=== PATIENT | male | born 1965 | race Caucasian/White ===

== ENCOUNTER → 2018-03-27 | Day surgery (SDC) | payer OTHER ==
[2018-03-24 09:02] VITALS: Ht 170.2 cm; Wt 72.7 kg
[~2018-03-27] VITALS: Ht 170.2 cm; Wt 72.7 kg
[~2018-03-27] MED LIST: ACET-1311 PO; ATROPINE SULFATE 0.1 MG/ML 5ML SYR IV PRN; DEXAMETHASONE SOD INJ 4 MG/ML VIAL ONE; EpHEDrine SULFATE INJ 50 MG/ML AMP IV PRN; FENTANYL CITRATE INJ 50 MCG/1 ML 2 ML VIAL IV PRN; FENTANYL CITRATE INJ 50 MCG/1 ML 2 ML VIAL ONE; KETOROLAC TROMETHAMINE 30 MG/ML VIAL ONE; LACTATED RINGER'S 1000ML 1,000 ML IV SCH; LIDOCAINE HCL 2% 2 ML VIAL (20MG/ML) ONE; MIDAZOLAM HCL 1 MG/ML 2ML VIAL ONE; OMEP40CA41 PO; ONDANSETRON INJ 2 MG/ML 2 ML VIAL IV PRN; ONDANSETRON INJ 2 MG/ML 2 ML VIAL ONE; OXYC-57 PO; PROPOFOL IV EMULSION 10 MG/ML 20 ML VIAL IV ONE; TAMS0.4C38 PO
--- NOTE | 2018-03-27 08:12 | History & Physical Bridge Note ---
H&P Re-Evaluation Bridge Note: I have examined the patient, reviewed the History & Physical and in the interval since the performance of the History & Physical I have noted the following changes of clinical significance: No changes noted
--- NOTE | 2018-03-27 09:19 | [facility] Operative Report ---
Operative Report Operative Date Mar 27, 2018. Pre-Operative Diagnosis left renal stone, microscopic hematuria Post-Operative Diagnosis same Procedure(s) Performed cystoscopy, left shock wave lithotripsy Surgeon andres Chief Development Officer Surgeon(s) none Estimated Blood Loss 0mL Findings radio-opaque left renla stone, normla cysto Fluids 600mL Specimens none Drains None Anesthesia Type General Complication(s) none Disposition yes Recovery Room / PACU Indications medium left renal stone and hematuria Description of Procedure patient had general lma anesthesia and was placed on the litho bed. The left flak was placed against the litho head and the stone positioned into the focal zone. We delivered 2500 shocks to the left renal stone gradually increasing power to 5. We observed a 2 minute pause after the first 200 shocks. Mid treatment we prepped the genitals with chlorhexidine and draped out the lower half of body. I performed a flexible cystoscopy and found the urethra prostate and bladder to be normal. The prostate is nor enlarged. UOs are in normal location. I apsirated most of the fluid out of the bladder with a syringe. He tolerated procedure well and transferred to recovery in stable condition. I accompanied him to recovery room. The stone was seen to widen lighten and move medially during treatment. plan: home today flomax for 2-4 weeks strain urine until stone specimen is collected. ibuprofen and narcotic meds for pain relief clinic visit and kub in 4 weeks I attest to the content of the Intraoperative Record and any orders documented therein. Any exceptions are noted below.
--- NOTE | 2018-03-27 09:23 | Discharge Instructions ---
Discharge Instructions Date of Service Mar 27, 2018. Admission Reason for Admission: Left Kidney Stone Discharge Discharge Diagnosis / Problem: left kidney stone Discharge Goals Goal(s): Decrease discomfort, Improve disease control Activity Recommendations Activity Limitations: resume your previous activity Lifting Limitations: none Exercise/Sports Limitations: none May Resume Sexual Activity: when tolerated Shower/Bathe: no limitations Driving or Machine Use: resume 1 day after discharge . Instructions / Follow-Up Instructions / Follow-Up urine may be bloody for several days strain urine to collect stone pieces and bring to office visit take flomax daily for 2-4 weeks to ease stone passage take ibuprofen 600-800mg every 8 hours with food for mild to moderate pain add narcotic every 6 hours for severe pain use stool softener if using narcotic clinic visit one month with x-ray to assess stone clearance Current Hospital Diet Patient's current hospital diet: Discharge Diet Recommended Diet: Regular Diet Fluid Restriction: 2000 ml (8 cups) Procedures Procedures Performed: cystoscopy, left shock wave lithotripsy Pending Studies Studies pending at discharge: no Medical Emergencies . Who to Call and When: Medical Emergencies: If at any time you feel your situation is an emergency, please call 911 immediately. . Non-Emergent Contact Non-Emergency issues call your: Urologist ([phone]) Call Non-Emergent contact if: temperature is above 100.5, your pain is not controlled . . "Provider Documentation" section prepared by Yolanda Mitchell. . [place] Drug Monitoring Program Search Results: patient reviewed within database, no issues identified
[2018-03-27 09:54] VITALS: TEMP 37.3
--- NOTE | 2018-03-27 10:02 | Anesthesia Progress Nt - [facility] ---
Anesthesia Post Op Note Date & Time Mar 27, 2018 at 10:02 Vital Signs Pain Intensity: 1 Vital Signs Past 12 Hours Date Time Temp Pulse Resp B/P (MAP) Pulse Ox O2 Delivery O2 Flow Rate FiO2 03/27/18 09:54 37.3 82 16 176/103 (127) 95 Room Air 03/27/18 09:47 84 17 96 03/27/18 09:47 84 17 03/27/18 09:46 161/99 03/27/18 09:45 37.3 97 Room Air 03/27/18 09:43 80 13 03/27/18 09:43 80 13 96 03/27/18 09:42 90 13 99 03/27/18 09:42 87 13 03/27/18 09:41 154/94 03/27/18 09:37 81 18 03/27/18 09:37 80 18 100 03/27/18 09:36 153/96 03/27/18 09:32 78 21 03/27/18 09:32 78 21 100 03/27/18 09:31 158/96 03/27/18 09:29 80 20 100 03/27/18 09:29 81 20 03/27/18 09:26 157/95 03/27/18 09:24 79 25 100 03/27/18 09:24 78 25 03/27/18 09:21 154/97 03/27/18 09:20 154/97 03/27/18 09:19 37.1 99 16 154/97 100 Mask 9 03/27/18 07:12 36.9 75 18 151/95 (113) 96 Room Air Notes Mental Status: alert / awake / arousable, participated in evaluation Pt Amnestic to Procedure: Yes Nausea / Vomiting: adequately controlled Pain: adequately controlled Airway Patency, RR, SpO2: stable & adequate BP & HR: stable & adequate Hydration State: stable & adequate Anesthetic Complications: no major complications apparent
[2018-03-27 10:15] VITALS: O2SAT 97
[2018-03-27 10:25] VITALS: BP 169/95; PULSE 75
== END | disposition home or self-care (01) ==
LOC: X.SURG 06:58
PROVIDERS: ATTEND Urology
DX: N20.0 Calculus of kidney (principal); R31.29 Other microscopic hematuria

== ENCOUNTER 2025-10-23 12:06 | Observation (INO) ==
[2025-10-23] MEDS: SODIUM CHLORIDE 0.9% 1,000 ML IV ONE (12:35)
[2025-10-23 12:43] LABS: Hematocrit (blood only) 50.5 % (42.0-52.0); Hemoglobin 16.7 g/dL (14.0-18.0); Immature Granulocytes # (auto) 0.07 K/uL (0.01-0.20); Immature Granulocytes % (auto) 0.4 %; Mean Corpuscular Hemoglobin 30.8 pg (25.0-34.0); Mean Corpuscular Volume 93.0 fL (80.0-100.0); Platelet Count 426 K/uL (130-400); RDW Standard Deviation 45.9 fL (36.4-46.3); Red Blood Count 5.43 M/uL (4.70-6.10); White Blood Count 18.58 K/ul (4.8-10.8)
[2025-10-23 13:00] LABS: Albumin Level 4.9 gm/dl (3.4-5.0); Anion Gap 15.0 (3-11); Bilirubin,Total 0.5 mg/dl (0.2-1.0); Calcium 10.1 mg/dl (8.6-10.3); Carbon Dioxide 20.0 mmol/L (21-32); Chloride 108.0 mmol/L (98-107); Potassium 3.9 mmol/L (3.5-5.1); Sodium 143.0 mmol/L (136-145)
[2025-10-23 13:06] LABS: Alanine Aminotransferase 25.0 U/L (7-52); Alkaline Phosphatase 85.0 U/L (34-104); Blood Urea Nitrogen 20.0 mg/dl (6-23); Creatinine Clr Calc Pharmacy 31.5 ml/min; Glucose 183.0 mg/dl (70-99(Fasting)); Lipase 18.0 U/L (11-82); Total Protein 9.7 gm/dl (6.0-8.3)
[2025-10-23 13:11] LABS: INR 1.1 (0.9-1.1); Partial Thromboplastin Time 29 Seconds (21-31); Prothrombin Time 11.3 Seconds (9.0-12.0)
[2025-10-23] MEDS: ONDANSETRON INJ 2 MG/ML 2 ML VIAL IV STA (13:24)
[2025-10-23] MEDS: PANTOprazole 40 MG in DEXTROSE 5% MINI-B 100 ML IV SCH (13:29)
[2025-10-23] MEDS: GLUCAGON 1 ML IV ONE (13:30)
[2025-10-23] MEDS: PANTOPRAZOLE BOLUS/DRIP IV STA (13:30)
--- NOTE | 2025-10-23 13:32 | XRay Report ---
Exam: XR abdomen 2 views with PA chest. Exam reason: Vomiting. Comparison: 11/29/2023 Technique: Upright and supine views of the abdomen were obtained in addition to a PA view of the chest. Findings: The lungs are well-expanded and clear. The cardiac and mediastinal contours are within normal limits. There is no pneumothorax. Multiple additional views of the abdomen demonstrate a nonobstructive bowel gas pattern. No unusual soft tissue calcifications are identified. There is no evidence of free air beneath the hemidiaphragms. No radiopaque foreign bodies are seen. Impression: 1. No acute cardiopulmonary abnormality. 2. Nonobstructive abdominal bowel gas pattern. Electronically signed by Clay Higgins 10-23-2025 13:31 PM
--- NOTE | 2025-10-23 13:56 | CT Scan Report ---
Exam: The abdomen pelvis without contrast. Exam reason: Vomiting. Comparison: 07/20/2024. Technique: Multiple transaxial images of the abdomen pelvis were obtained without contrast. Findings: The visualized portions of the lung bases are unremarkable. No focal abnormalities noted within the liver. No normal spleen is identified in the left upper quadrant. Multiple irregularly-shaped splenules are noted in the splenic fossa. Adrenals and pancreas are within normal limits. The gallbladder is unremarkable there is no evidence of obstructing stone or hydronephrosis. There are bilateral punctate nonobstructing renal calculi. The bowel loops are of normal caliber. The bladder is unremarkable. There is no free air, free fluid or inflammatory change. The appendix is normal in course and caliber no acute bony adenopathy is identified. There is scattered atherosclerotic calcifications noted within the aorta and its branches. Impression: 1. Unremarkable abdomen and pelvis. Electronically signed by Clay Higgins 10-23-2025 13:56 PM
--- NOTE | 2025-10-23 14:03 | Emergency Department Note ---
History of Present Illness General Chief complaint: GI Assessment Stated complaint: THROWING UP COFFEEGRINDS ELEVATED BS Time Seen by Provider: 10/23/25 12:15 History of Present Illness Provider complaint: Vomiting Onset (ago): day(s) 2 60-year-old male presents emergency department for vomiting. Patient is here with his . reports that the patient was eating meat yesterday and sometimes meat gets stuck in his throat after a stroke. She states he has been vomiting and cannot keep anything down. reports coffee-ground emesis. Home Medications Medication Instructions Recorded Confirmed Type amantadine HCl 100 mg capsule 100 mg feeding tube QAM 07/20/24 10/23/25 History amlodipine 10 mg tablet 10 mg feeding tube QAM 07/20/24 10/23/25 History buspirone 5 mg tablet 5 mg feeding tube BID 07/20/24 10/23/25 History diphenhydramine HCl 25 mg capsule 25 mg feeding tube QAM 07/20/24 10/23/25 History (Banophen) fluoxetine 40 mg capsule 0 mg feeding tube QAM 07/20/24 10/23/25 History folic acid 1 mg tablet 1 mg feeding tube QAM 07/20/24 10/23/25 History labetalol 200 mg tablet 0 mg feeding tube DIRECTED 07/20/24 10/23/25 History lisinopril 20 mg tablet 0 mg feeding tube BID 07/20/24 10/23/25 History meclizine 25 mg tablet 25 mg feeding tube TID PRN 07/20/24 10/23/25 History Dizziness multivitamin with folic acid 400 1 tab PO .DAILYATNOON 07/20/24 10/23/25 History mcg tablet (Daily-Stiven (with folic acid)) pantoprazole 40 mg tablet,delayed 40 mg PO QAM 07/20/24 10/23/25 History release rosuvastatin 10 mg tablet 10 mg PO QAM 07/20/24 10/23/25 History tamsulosin 0.4 mg capsule 0 mg PO QAM 07/20/24 10/23/25 History thiamine HCl (vitamin B1) 100 mg 100 mg feeding tube QAM 07/20/24 10/23/25 History tablet trazodone 50 mg tablet 50 mg PO HS 07/20/24 10/23/25 History metformin 500 mg tablet,extended 500 mg PO DAILY 10/23/25 10/23/25 History release 24 hr metoprolol succinate 25 mg 25 mg PO DAILY 10/23/25 10/23/25 History tablet,extended release 24 hr Allergies Allergy/AdvReac Type Severity Reaction Status Date / Time No Known Allergies Allergy Verified 03/05/23 23:17 Past Med/Surg History Problem List (Updated 10/23/25 @ 14:20 by Apollo Zambrano MD) Coffee ground emesis (Acute) WILMA (acute kidney injury) (Acute) Encounter for pre-operative examination Food impaction of esophagus (Acute) Medical History Alcoholic intoxication Mood disorder Food impaction of esophagus Kidney stones Social History Smoking Status: Never smoker Tobacco Type: Cigarettes Preferred Language: Citizen Of [place] Feels Safe at Home: Yes Physical Exam Vital Signs Vital Signs - 24 hr 10/23/25 12:11 10/23/25 12:37 10/23/25 12:37 Temperature 36.4 C L Temperature Source Temporal Artery Scan Pulse Rate 100 H 67 Pulse Rate [Apical] 67 Respiratory Rate 20 16 16 Respiratory Effort / Characteristics Non-Labored Spontaneous Respiratory Depth Normal Blood Pressure 108/73 Blood Pressure [Right Arm] 135/78 Blood Pressure Mean 84 Blood Pressure Mean [Right Arm] 97 Blood Pressure Position Sitting Pulse Oximetry 96 98 98 Oxygen Delivery Method Room Air Room Air Room Air Sepsis Recent Fever Within 48 Hours No Sepsis New/Unexplained Change in Mental Status N/A Sepsis Action Taken by Nursing No Action Required 10/23/25 12:40 Temperature Temperature Source Pulse Rate 87 Pulse Rate [Apical] Respiratory Rate Respiratory Effort / Characteristics Respiratory Depth Blood Pressure Blood Pressure [Right Arm] Blood Pressure Mean Blood Pressure Mean [Right Arm] Blood Pressure Position Pulse Oximetry Oxygen Delivery Method Sepsis Recent Fever Within 48 Hours Sepsis New/Unexplained Change in Mental Status Sepsis Action Taken by Nursing Physical Exam HENT: Exam performed. - Head: Normocephalic and atraumatic. CV: Normal rate, regular rhythm, normal heart sounds and intact distal pulses. There is no peripheral edema. Palpable radial pulses bue. PULM/CHEST: Effort normal and breath sounds normal. No respiratory distress. No stridor. no wheezes. no rales. ABD: The abdomen is soft. There is no tenderness. Course Course 1215: The patient was evaluated in room B12. A complete history and physical exam was performed Cardiac monitoring: An order was placed for continuous cardiac monitoring. The monitor shows a rate of 90 with sinus rhythm interpreted by me 1315: Vital signs stable. Patient's creatinine is doubled his baseline up to 2.6. Will obtain CT of the abdomen pelvis without contrast. 1407: Vital signs stable. Labs show leukocytosis of 18.58. Hemoglobin 16.7 platelet count 426 coagulation studies are unremarkable. Creatinine up to 2.6. Liver function test within normal limits. Imaging shows no acute pathology. Patient tolerating his own oral secretions no respiratory distress. Patient on Protonix bolus/drip and IV fluids. Discussed the case with Dr. BRIAN on-call GI. He agrees patient should be admitted to the medicine team and he states his team will evaluate the patient in the morning. Administered Medications Pantoprazole Sodium 40 mg/ (Dextrose) 100 mls @ 20 mls/hr IV Q5H CINDY Stop: 11/22/25 12:59 Last Admin: 10/23/25 13:29 Dose: 8 mg/hr, 20 mls/hr Documented By: DELTA Discontinued Medications Sodium Chloride (Nss) 1,000 mls @ 999 mls/hr IV .Q1H1M ONE Stop: 10/23/25 13:16 Last Infusion: 10/23/25 13:31 Dose: Infused Documented By: Admin: 10/23/25 12:35 Dose: 999 mls/hr Documented By: DELTA Pantoprazole Sodium 80 mg/ (Dextrose) 120 mls @ 480 mls/hr IV NOW ONE Stop: 10/23/25 12:57 Last Infusion: 10/23/25 13:58 Dose: Infused Documented By: Admin: 10/23/25 13:29 Dose: 480 mls/hr Documented By: DELTA Glucagon (Glucagen) 1 mls @ 1 mls/min IV ONE ONE Stop: 10/23/25 12:44 Last Admin: 10/23/25 13:30 Dose: Not Given Documented By: DELTA Ondansetron HCl (Ondansetron Inj 2 Mg/Ml 2 Ml Vial) 4 mg IV NOW STA Stop: 10/23/25 12:44 Last Admin: 10/23/25 13:24 Dose: 4 mg Documented By: DELTA Pantoprazole Sodium (Pantoprazole Bolus/Drip) 1 each IV NOW STA Stop: 10/23/25 12:44 Last Admin: 10/23/25 13:30 Dose: Not Given Documented By: DELTA Medical Decision Making Laboratory Data Attestation: I reviewed the patient's lab results. 10/23/25 12:33 10/23/25 12:33 Lab Results 10/23/25 Range/Units 12:33 WBC 18.58 H (4.8-10.8) K/ul RBC 5.43 (4.70-6.10) M/uL Hgb 16.7 (14.0-18.0) g/dL Hct 50.5 (42.0-52.0) % MCV 93.0 (80.0-100.0) fL MCH 30.8 (25.0-34.0) pg MCHC 33.1 (32.0-36.0) g/dL RDW Std Deviation 45.9 (36.4-46.3) fL RDW Coeff of Sylwia 13.4 (11.5-14.5) % Plt Count 426 H (130-400) K/uL MPV 10.4 (9.4-12.4) fL Immature Gran % (Auto) 0.4 % Neut % (Auto) 82.3 % Lymph % (Auto) 10.4 % Forrest % (Auto) 6.2 % Eos % (Auto) 0.1 % Baso % (Auto) 0.6 % Neut # (Auto) 15.29 H (1.40-6.50) K/uL Lymph # (Auto) 1.94 (1.20-3.40) K/uL Forrest # (Auto) 1.15 H (0.11-0.59) K/uL Eos # (Auto) 0.01 (0.00-0.50) K/uL Baso # (Auto) 0.12 (0.00-0.20) K/uL Immature Gran # (Auto) 0.07 (0.01-0.20) K/uL PT 11.3 (9.0-12.0) Seconds INR 1.1 (0.9-1.1) APTT 29 (21-31) Seconds PTT Ratio 1.1 Sodium 143 (136-145) mmol/L Potassium 3.9 (3.5-5.1) mmol/L Chloride 108 H (98-107) mmol/L Carbon Dioxide 20 L (21-32) mmol/L Anion Gap 15 H (3-11) BUN 20 (6-23) mg/dl Creatinine 2.60 H (0.6-1.4) mg/dl Est Cr Clr Drug Dosing 31.5 ml/min eGFR 27.72 BUN/Creatinine Ratio 7.7 L (10-20) Glucose 183 H (70-99(Fasting)) mg/dl Calcium 10.1 (8.6-10.3) mg/dl Total Bilirubin 0.5 (0.2-1.0) mg/dl Direct Bilirubin 0.1 (0-0.2) mg/dl AST 26 (13-39) U/L ALT 25 (7-52) U/L Alkaline Phosphatase 85 (34-104) U/L Total Protein 9.7 H (6.0-8.3) gm/dl Albumin 4.9 (3.4-5.0) gm/dl Lipase 18 (11-82) U/L Imaging Data Attestation: I personally reviewed and interpreted this imaging study as follows: My Impression: Acute abdominal series: Chest x-ray negative. Airway clear. No pneumothorax. No consolidation. No cardiomegaly or cephalization.. No free air under the diaphragm. No fractures of the skeletal structures. No air-fluid levels. Nonspecific bowel gas pattern. Radiologist's Impression: Chest/Abdomen X-ray 10/23/25 12:16 Exam: XR abdomen 2 views with PA chest. Exam reason: Vomiting. Comparison: 11/29/2023 Technique: Upright and supine views of the abdomen were obtained in addition to a PA view of the chest. Findings: The lungs are well-expanded and clear. The cardiac and mediastinal contours are within normal limits. There is no pneumothorax. Multiple additional views of the abdomen demonstrate a nonobstructive bowel gas pattern. No unusual soft tissue calcifications are identified. There is no evidence of free air beneath the hemidiaphragms. No radiopaque foreign bodies are seen. Impression: 1. No acute cardiopulmonary abnormality. 2. Nonobstructive abdominal bowel gas pattern. Electronically signed by Clay Higgins 10-23-2025 13:31 PM Abdomen/Pelvis CT 10/23/25 13:16 Exam: The abdomen pelvis without contrast. Exam reason: Vomiting. Comparison: 07/20/2024. Technique: Multiple transaxial images of the abdomen pelvis were obtained without contrast. Findings: The visualized portions of the lung bases are unremarkable. No focal abnormalities noted within the liver. No normal spleen is identified in the left upper quadrant. Multiple irregularly-shaped splenules are noted in the splenic fossa. Adrenals and pancreas are within normal limits. The gallbladder is unremarkable there is no evidence of obstructing stone or hydronephrosis. There are bilateral punctate nonobstructing renal calculi. The bowel loops are of normal caliber. The bladder is unremarkable. There is no free air, free fluid or inflammatory change. The appendix is normal in course and caliber no acute bony adenopathy is identified. There is scattered atherosclerotic calcifications noted within the aorta and its branches. Impression: 1. Unremarkable abdomen and pelvis. Electronically signed by lCay Higgins 10-23-2025 13:56 PM [facility] Narrative 1215: The patient was evaluated in room B12. A complete history and physical exam was performed Cardiac monitoring: An order was placed for continuous cardiac monitoring. The monitor shows a rate of 90 with sinus rhythm interpreted by me 1315: Vital signs stable. Patient's creatinine is doubled his baseline up to 2.6. Will obtain CT of the abdomen pelvis without contrast. 1407: Vital signs stable. Labs show leukocytosis of 18.58. Hemoglobin 16.7 platelet count 426 coagulation studies are unremarkable. Creatinine up to 2.6. Liver function test within normal limits. Imaging shows no acute pathology. Patient tolerating his own oral secretions no respiratory distress. Patient on Protonix bolus/drip and IV fluids. Discussed the case with Dr. BRIAN on-call GI. He agrees patient should be admitted to the medicine team and he states his team will evaluate the patient in the morning. Impression & Plan WILMA (acute kidney injury), Coffee ground emesis Discharge Plan Visit Data Chief Complaint: GI Assessment Stated Complaint: THROWING UP COFFEEGRINDS ELEVATED BS ED Provider: Apollo Zambrano Discharge Problem: WILMA (acute kidney injury), Coffee ground emesis Patient Disposition: Admitted As Inpatient Condition: Fair Forms Stand Alone Forms: [email or web address] Prescriptions Prescriptions: No Action fluoxetine 40 mg capsule 0 mg feeding tube QAM Patient Comments: 10/23-- last filled 01/30 30 day supply #30 buspirone 5 mg tablet 5 mg feeding tube BID labetalol 200 mg tablet 0 mg feeding tube DIRECTED Patient Comments: 10/23- last filled 12/03 30 day supply #120 trazodone 50 mg tablet 50 mg PO HS lisinopril 20 mg tablet 0 mg feeding tube BID Patient Comments: 10/23-last filled 08/05 30 day supply #60 thiamine HCl (vitamin B1) 100 mg tablet 100 mg feeding tube QAM Patient Comments: 10/23- otc unable to verify amantadine HCl 100 mg capsule 100 mg feeding tube QAM tamsulosin 0.4 mg capsule 0 mg PO QAM Patient Comments: 10/23-last filled 05/03 30 day supply #30 meclizine 25 mg tablet 25 mg feeding tube TID PRN (Reason: Dizziness) Patient Comments: 10/23- otc unable to verify amlodipine 10 mg tablet 10 mg feeding tube QAM pantoprazole 40 mg tablet,delayed release (DR/EC) 40 mg PO QAM diphenhydramine HCl [Banophen] 25 mg capsule 25 mg feeding tube QAM folic acid 1 mg tablet 1 mg feeding tube QAM Patient Comments: 10/23- otc unable to verify rosuvastatin 10 mg tablet 10 mg PO QAM multivitamin with folic acid [Daily-Stiven (with folic acid)] 400 mcg tablet 1 tab PO .DAILYATNOON Patient Comments: 10/23--OTC/last filled 04/18 90 day supply #90 metoprolol succinate 25 mg tablet extended release 24 hr 25 mg PO DAILY metformin 500 mg tablet extended release 24 hr 500 mg PO DAILY Referrals Referrals: Sherman Barry MD [Primary Care Provider] -
--- NOTE | 2025-10-23 15:20 | History & Physical Report ---
Date of Service October 23, 2025 Assessment & Plan (1) Coffee ground emesis: Plan: Complains to have occasional swallowing difficulty since stroke in the past Has had food impaction at lunch yesterday Repeated vomiting since then without any pain and noted to have coffee-ground emesis No prior history of GI bleed and does not take any NSAIDs Hemoglobin remains stable He has been started with intravenous Protonix drip and that will be continued Will get H&H's every 6 hourly for 24 hours GI consult and possible EGD tomorrow (2) Dysphagia: Plan: Complains of occasional dysphagia since his stroke about 2 years ago (3) Food impaction of esophagus: (4) WILMA (acute kidney injury): Plan: Noted to have increasing creatinine of 2.60 Normal noted to be on 07/20/2024 at 1.30 Likely secondary to dehydration and not been eating and drinking since noon yesterday Will give cautious amount of intravenous fluid and monitor clear (5) HTN (hypertension): Plan: Blood pressure remains on the upper side at 154/92 Will continue his usual medications (6) Hyperlipidemia: Plan: Continue statin (7) History of intracranial hemorrhage: Plan: Has minimal left-sided hemiparesis (8) Major neurocognitive disorder: Plan: Has been evaluated by neuropsychiatrist Has major neurocognitive disorder but communicating normally DVT prophylaxis SCDs CODE STATUS Full History of Present Illness Chief Complaint: Choking on meat at lunch yesterday following vomiting of coffee-ground material Primary Care Provider: Sherman Barry MD Is a 60-year-old male with significant past medical history of hemorrhagic stroke with left hemiplegia about 2 years ago, hypertension, type 2 diabetes, major neurocognitive disorder following the stroke and prior history of alcohol abuse apparently has been complaining of occasional problem with swallowing solid food following the stroke. He was having turkey lunch yesterday and felt the food stuck in his esophagus and started to have vomiting. He has had vomited about 12 times since the incidence and lately having coffee-ground emesis as well. He was brought into the emergency room for further evaluation. He denies any pain in the central chest or in the epigastrium, does not have any abdominal pain nausea and or vomiting since I saw him, and denies any problem with urinary or bowel. He has not been taking any NSAIDs and he has not had any coffee-ground vomiting before or did not have any black tarry stool past. He was started with intravenous Protonix and GI service was informed by the ER physician who will probably do EGD tomorrow. Allergies Allergy/AdvReac Type Severity Reaction Status Date / Time No Known Allergies Allergy Verified 03/05/23 23:17 Home Medications Medication Instructions Recorded Confirmed Type amantadine HCl 100 mg capsule 100 mg feeding tube QAM 07/20/24 10/23/25 History amlodipine 10 mg tablet 10 mg feeding tube QAM 07/20/24 10/23/25 History buspirone 5 mg tablet 5 mg feeding tube BID 07/20/24 10/23/25 History diphenhydramine HCl 25 mg capsule 25 mg feeding tube QAM 07/20/24 10/23/25 History (Banophen) fluoxetine 40 mg capsule 0 mg feeding tube QAM 07/20/24 10/23/25 History folic acid 1 mg tablet 1 mg feeding tube QAM 07/20/24 10/23/25 History labetalol 200 mg tablet 0 mg feeding tube DIRECTED 07/20/24 10/23/25 History lisinopril 20 mg tablet 0 mg feeding tube BID 07/20/24 10/23/25 History meclizine 25 mg tablet 25 mg feeding tube TID PRN 07/20/24 10/23/25 History Dizziness multivitamin with folic acid 400 1 tab PO .DAILYATNOON 07/20/24 10/23/25 History mcg tablet (Daily-Stiven (with folic acid)) pantoprazole 40 mg tablet,delayed 40 mg PO QAM 07/20/24 10/23/25 History release rosuvastatin 10 mg tablet 10 mg PO QAM 07/20/24 10/23/25 History tamsulosin 0.4 mg capsule 0 mg PO QAM 07/20/24 10/23/25 History thiamine HCl (vitamin B1) 100 mg 100 mg feeding tube QAM 07/20/24 10/23/25 History tablet trazodone 50 mg tablet 50 mg PO HS 07/20/24 10/23/25 History metformin 500 mg tablet,extended 500 mg PO DAILY 10/23/25 10/23/25 History release 24 hr metoprolol succinate 25 mg 25 mg PO DAILY 10/23/25 10/23/25 History tablet,extended release 24 hr Past Med/Surg History Problem List (Updated 10/23/25 @ 15:15 by Priscilla Dubon MD) Major neurocognitive disorder History of intracranial hemorrhage Hyperlipidemia HTN (hypertension) Dysphagia Coffee ground emesis (Acute) WILMA (acute kidney injury) (Acute) Encounter for pre-operative examination Food impaction of esophagus (Acute) Medical History Alcoholic intoxication Mood disorder Food impaction of esophagus Kidney stones Social History Smoking Status: Never smoker Tobacco Type: Cigarettes Preferred Language: Iraqi Feels Safe at Home: Yes Review of Systems Review of Systems: All systems reviewed and are unremarkable except as noted below Physical Exam Physical Exam: Lying in bed without any acute distress Constitutional: well developed, well nourished, + ill appearing and average body habitus Eyes: PERRL, conjunctivae normal, anicteric sclerae ENMT: external ear and nose normal, oropharynx normal Neck: trachea midline, no thyromegaly Respiratory: no respiratory distress Auscultation: lungs clear to auscultation bilaterally Cardiovascular: Rate/Rhythm: regular rate and regular rhythm; not tachycardic Heart Sounds: normal S1 and normal S2; no murmur Extremities: no edema Gastrointestinal (Abdomen): Inspection/Auscultation: normal bowel sounds; abdomen not distended Percussion/Palpation: abdomen soft; abdomen nontender Musculoskeletal: No acute arthritis involving any of the joint Neurologic: normal touch/pain/proprioception, moves all extremities and + focal motor deficit (Very minimal loss of power in left-sided extremities) Psychiatric: Has significant neurocognitive disorder as per the note Lymphatic: no cervical or axillary lymphadenopathy Results & Data Results & Data Vital Signs (Past 12 Hours) Vital Signs Temp Pulse Pulse Resp BP BP Pulse Ox 10/23/25 14:07 89 16 154/92 H 95 10/23/25 12:40 87 10/23/25 12:37 67 16 98 10/23/25 12:37 67 16 135/78 98 10/23/25 12:11 36.4 C L 100 H 20 108/73 96 O2 Del Method 10/23/25 14:07 Room Air 10/23/25 12:40 10/23/25 12:37 Room Air 10/23/25 12:37 Room Air 10/23/25 12:11 Room Air Laboratory Results Short CBC 10/23/25 Range/Units 12:33 WBC 18.58 H (4.8-10.8) K/ul Hgb 16.7 (14.0-18.0) g/dL Hct 50.5 (42.0-52.0) % Plt Count 426 H (130-400) K/uL BMP 10/23/25 12:33 Sodium 143 Potassium 3.9 Chloride 108 H Carbon Dioxide 20 L BUN 20 Creatinine 2.60 H Glucose 183 H Calcium 10.1 Liver Function 10/23/25 Range/Units 12:33 Total Bilirubin 0.5 (0.2-1.0) mg/dl Direct Bilirubin 0.1 (0-0.2) mg/dl AST 26 (13-39) U/L ALT 25 (7-52) U/L Alkaline Phosphatase 85 (34-104) U/L Albumin 4.9 (3.4-5.0) gm/dl Medications Administered Current Inpatient Medications Pantoprazole Sodium 40 mg/ (Dextrose) 100 mls @ 20 mls/hr IV Q5H CINDY Stop: 11/22/25 12:59 Last Admin: 10/23/25 13:29 Dose: 8 mg/hr, 20 mls/hr Code Status & VTE Plan VTE Prophylaxis Plan VTE Prophylaxis will be ordered: Yes (3) Food impaction of esophagus Encounter type: initial encounter Qualified Code(s): T18.128A - Food in esophagus causing other injury, initial encounter
[2025-10-23] MEDS: LACTATED RINGER'S 1,000 ML IV SCH (15:39)
[2025-10-23] MEDS ORDERED: MECLIZINE HCL 25 MG TAB PO PRN (17:23)
[2025-10-23] MEDS: METOPROLOL SUCC 25MG EXT REL TAB PO SCH (17:56)
[2025-10-23 19:50] LABS: Hematocrit (blood only) 44.1 % (42.0-52.0); Hemoglobin 14.9 g/dL (14.0-18.0)
[2025-10-23] MEDS ORDERED: GLUCOSE 10 TAB/TUBE PO PRN (20:11)
[2025-10-23] MEDS ORDERED: GLUCOSE 40% GEL 15 GM TUBE PO PRN (20:11)
[2025-10-23] MEDS ORDERED: GLUCAGON FOR INJ 1 MG VIAL SQ PRN (20:11)
[2025-10-23] MEDS ORDERED: DEXTROSE 50% 50 ML SYRINGE IV PRN (20:11)
[2025-10-23] MEDS ORDERED: CARBOHYDRATES FOR HYPOGLYCEMIA PO PRN (20:11)
[2025-10-23] MEDS: busPIRone 5 MG TAB PO SCH (20:44)
[2025-10-23] MEDS: INSULIN ASPART PER UNIT CHARGE SC SCH (20:47)
[2025-10-24 00:48] LABS: Hematocrit (blood only) 40.9 % (42.0-52.0); Hemoglobin 13.8 g/dL (14.0-18.0)
[2025-10-24] MEDS: AMANTADINE HCL 100 MG CAPSULE PO SCH (08:09)
[2025-10-24] MEDS: ROSUVASTATIN CALCIUM 10 MG TAB PO SCH (08:09)
[2025-10-24] MEDS: diphenhydrAMINE Capsule 25 MG CAP PO SCH (08:10)
[2025-10-24 08:21] LABS: Hematocrit (blood only) 39.9 % (42.0-52.0); Hemoglobin 13.4 g/dL (14.0-18.0); Immature Granulocytes # (auto) 0.05 K/uL (0.01-0.20); Immature Granulocytes % (auto) 0.4 %; Mean Corpuscular Hemoglobin 31.5 pg (25.0-34.0); Mean Corpuscular Volume 93.9 fL (80.0-100.0); Platelet Count 313 K/uL (130-400); RDW Standard Deviation 46.3 fL (36.4-46.3); Red Blood Count 4.25 M/uL (4.70-6.10); White Blood Count 12.92 K/ul (4.8-10.8)
[2025-10-24 08:40] LABS: Anion Gap 7.0 (3-11); Blood Urea Nitrogen 13.0 mg/dl (6-23); Calcium 8.7 mg/dl (8.6-10.3); Carbon Dioxide 25.0 mmol/L (21-32); Chloride 112.0 mmol/L (98-107); Creatinine Clr Calc Pharmacy 71.2 ml/min; Glucose 123.0 mg/dl (70-99(Fasting)); Magnesium 1.9 mg/dl (1.7-2.4); Potassium 3.7 mmol/L (3.5-5.1); Sodium 144.0 mmol/L (136-145)
[2025-10-24] MEDS ORDERED: PANTOprazole 40 MG in DEXTROSE 5% MINI-B 100 ML IV SCH (09:00)
[2025-10-24 09:21] LABS: Hemoglobin A1C 7.4 % (4.5-5.6)
[2025-10-24] MEDS: PANTOprazole 40 MG in SYRINGE BID IV SCH (10:09)
[2025-10-24] MEDS: MULTIVITAMIN TAB PO SCH (12:07)
--- NOTE | 2025-10-24 12:16 | Gastrointestinal Consultation ---
<Statement entered by Frank Murillo MD - 10/24/25 15:07> ATTENDING: The patient was seen and examined. Hospital labs, data, records and imaging reviewed at length. The case was discussed and reviewed with the GI advanced practitioner and I agree with her assessment and plan as outlined above. We will perform upper endoscopy to evaluate for any esophagitis or stricture. Further recommendations to follow thereafter Thank you for the courtesy of this consultation. Date of Consultation October 24, 2025 Assessment & Plan (1) Coffee ground emesis: Patient notes Friday's food no longer feels stuck after vomiting and he felt it pass, but after vomiting many times he developed coffee ground emesis. -Continue IV Protonix -Keep NPO for EGD today -Continue to monitor H/H History of Present Illness Reason for Consultation: coffee ground emesis Attending Physician: Ede Mchugh MD History of Present Illness Patient is a 60 yo male with PMH of HTN, DM2, major neurocognitive disorder and L sided hemiplegia following stroke, and history of alcohol abuse. Family reports to me that he has a history of not chewing his food thoroughly enough leading to repeated food bolus. They tell me he has required EGDs previously for this issue. They noted that he had a turkey sandwich on Monday 10/22 and he felt the food was stuck. He started vomiting at that point. He had 12 episodes of emesis prior to developing an episode of coffee-ground emesis. He notes that he feels that the food passed. No melena. No further vomiting at this point. No NSAID use. He is currently NPO. No pertinent family history. H/H 13.4/39.9. CT abd/pelvis unremarkable. Patient is currently on IV PPI therapy. Allergies Allergy/AdvReac Type Severity Reaction Status Date / Time No Known Allergies Allergy Verified 03/05/23 23:17 Home Medications Medication Instructions Recorded Confirmed Type amantadine HCl 100 mg capsule 100 mg feeding tube QAM 07/20/24 10/23/25 History amlodipine 10 mg tablet 10 mg feeding tube QAM 07/20/24 10/23/25 History buspirone 5 mg tablet 5 mg feeding tube BID 07/20/24 10/23/25 History diphenhydramine HCl 25 mg capsule 25 mg feeding tube QAM 07/20/24 10/23/25 History (Banophen) fluoxetine 40 mg capsule 0 mg feeding tube QAM 07/20/24 10/23/25 History folic acid 1 mg tablet 1 mg feeding tube QAM 07/20/24 10/23/25 History labetalol 200 mg tablet 0 mg feeding tube DIRECTED 07/20/24 10/23/25 History lisinopril 20 mg tablet 0 mg feeding tube BID 07/20/24 10/23/25 History meclizine 25 mg tablet 25 mg feeding tube TID PRN 07/20/24 10/23/25 History Dizziness multivitamin with folic acid 400 1 tab PO .DAILYATNOON 07/20/24 10/23/25 History mcg tablet (Daily-Stiven (with folic acid)) pantoprazole 40 mg tablet,delayed 40 mg PO QAM 07/20/24 10/23/25 History release rosuvastatin 10 mg tablet 10 mg PO QAM 07/20/24 10/23/25 History tamsulosin 0.4 mg capsule 0 mg PO QAM 07/20/24 10/23/25 History thiamine HCl (vitamin B1) 100 mg 100 mg feeding tube QAM 07/20/24 10/23/25 History tablet trazodone 50 mg tablet 50 mg PO HS 07/20/24 10/23/25 History metformin 500 mg tablet,extended 500 mg PO DAILY 10/23/25 10/23/25 History release 24 hr metoprolol succinate 25 mg 25 mg PO DAILY 10/23/25 10/23/25 History tablet,extended release 24 hr Patient History Medical History Alcoholic intoxication Mood disorder Kidney stones Social History Smoking Status: Former smoker Tobacco Type: Cigarettes Second Hand Exposure: No; Do You Dip or Chew Tobacco: No; Tobacco Cessation Education Requested by Patient: No Hx Alcohol Use: Yes Alcohol type: beer Hx Substance Use: No Preferred Language: Japanese Communication Ability: Effective Cardiothoracic Icu Rn Required: No Beliefs That Will Affect Care: None Current Living Situation: Spouse Other Information That Helps Us Care for You: No Feels Safe at Home: Yes Safety Concerns: Feels Safe At This Time Assistive Devices: Denture - Upper and Glasses Review of Systems Constitutional: no fever and no chills Gastrointestinal: + coffee ground emesis; no abdominal alba n, no blood in stools and no melena Physical Exam Constitutional: well developed Respiratory: normal respiratory effort Gastrointestinal (Abdomen): normal bowel sounds, soft, nontender, no hepatosplenomegaly Results & Data Vital Signs (Past 12 Hours) Vital Signs Temp Pulse Pulse Resp BP BP Pulse Ox 10/24/25 09:02 36.7 C 66 17 129/75 94 10/24/25 08:20 10/24/25 07:19 60 10/24/25 02:48 36.9 C 67 16 103/63 93 O2 Del Method 10/24/25 09:02 Room Air 10/24/25 08:20 Room Air 10/24/25 07:19 10/24/25 02:48 Room Air PG Care Time/CCT Total # of Minutes Spent Total Time Spent with Patient: Total time spent is greater than 50% in coordination of care (as documented) at patient's floor/unit and/or counseling patient: Coding Level of Care Code 74118 IN/OBS CONSULT LVL 4,60M Diagnoses Coffee ground emesis K92.0
--- NOTE | 2025-10-24 14:18 | Anesthesiology Consultation ---
Date of Service October 24, 2025 Assessment & Plan (1) Dysphagia: (2) Coffee ground emesis: (3) WILMA (acute kidney injury): Chart Review Chart Review: Acceptable Risk for Surgery Consults Requested none ASA ASA3 Proposed Anesthesia Anesthesia Type: MAC Risk / Benefits Reviewed With: PT / POA / Parent / Guardian, Accepts Plan and Informed Consent Obtained History Surgery Operation Date: 10/24/25 17:00 Proposed Procedures p Esophagogastroduodenoscopy Dr. Murillo - Frank Murillo MD Height/Weight Height: 5 ft 6 in Weight: 82.554 kg Allergies Allergy/AdvReac Type Severity Reaction Status Date / Time No Known Allergies Allergy Verified 03/05/23 23:17 Medications Home Medications Medication Instructions Recorded Confirmed Last Taken amantadine HCl 100 mg capsule 100 mg feeding tube QAM 07/20/24 10/23/25 07/20/24 amlodipine 10 mg tablet 10 mg feeding tube QAM 07/20/24 10/23/25 07/20/24 buspirone 5 mg tablet 5 mg feeding tube BID 07/20/24 10/23/25 07/20/24 diphenhydramine HCl 25 mg capsule 25 mg feeding tube QAM 07/20/24 10/23/25 07/20/24 (Banophen) fluoxetine 40 mg capsule 0 mg feeding tube QAM 07/20/24 10/23/25 07/20/24 folic acid 1 mg tablet 1 mg feeding tube QAM 07/20/24 10/23/25 07/20/24 labetalol 200 mg tablet 0 mg feeding tube DIRECTED 07/20/24 10/23/25 07/20/24 lisinopril 20 mg tablet 0 mg feeding tube BID 07/20/24 10/23/25 07/20/24 meclizine 25 mg tablet 25 mg feeding tube TID PRN 07/20/24 10/23/25 Unknown Dizziness multivitamin with folic acid 400 1 tab PO .DAILYATNOON 07/20/24 10/23/25 07/20/24 mcg tablet (Daily-Stiven (with folic acid)) pantoprazole 40 mg tablet,delayed 40 mg PO QAM 07/20/24 10/23/25 07/20/24 release rosuvastatin 10 mg tablet 10 mg PO QAM 07/20/24 10/23/25 07/20/24 tamsulosin 0.4 mg capsule 0 mg PO QAM 07/20/24 10/23/25 07/20/24 thiamine HCl (vitamin B1) 100 mg 100 mg feeding tube QAM 07/20/24 10/23/25 07/20/24 tablet trazodone 50 mg tablet 50 mg PO HS 07/20/24 10/23/25 Unknown metformin 500 mg tablet,extended 500 mg PO DAILY 10/23/25 10/23/25 Unknown release 24 hr metoprolol succinate 25 mg 25 mg PO DAILY 10/23/25 10/23/25 Unknown tablet,extended release 24 hr Active Medications Generic Name Dose Route Start Last Admin Trade Name Freq PRN Reason Stop Dose Admin Amantadine HCl 100 mg 10/24/25 09:00 10/24/25 08:09 Amantadine Hcl 100 Mg Capsule PO 11/23/25 08:59 100 mg QAM CINDY Administration Amlodipine Besylate 10 mg 10/23/25 17:23 10/24/25 08:08 Amlodipine Besylate 5 Mg Tab PO 11/22/25 17:22 10 mg QAM CINDY Administration Buspirone HCl 5 mg 10/23/25 21:00 10/24/25 08:10 Buspirone 5 Mg Tab PO 11/22/25 20:59 5 mg BID CINDY Administration Diphenhydramine HCl 25 mg 10/24/25 09:00 10/24/25 08:10 Diphenhydramine Capsule 25 Mg Cap PO 11/23/25 08:59 25 mg QAM CINDY Administration Fluoxetine HCl 40 mg 10/24/25 09:00 10/24/25 08:09 Fluoxetine Hcl 20 Mg Cap PO 11/23/25 08:59 40 mg QAM CINDY Administration Lactated Ringer's 1,000 mls @ 125 mls/hr 10/23/25 15:30 10/24/25 08:10 Lr IV 10/24/25 15:29 125 mls/hr .Q8H CINDY Administration Pantoprazole Sodium 40 mg in 10 mls @ 5 mls/min 10/24/25 09:00 10/24/25 10:09 Protonix IV 11/23/25 08:59 5 mls/min BID@0900,2100 CINDY Administration Insulin Aspart 0 units 10/23/25 20:15 10/24/25 13:39 Insulin Aspart Per Unit Charge SC 11/22/25 20:14 Not Given Q6H CINDY Lisinopril 20 mg 10/23/25 21:00 10/24/25 08:09 Lisinopril 20 Mg Tab PO 11/22/25 20:59 20 mg BID CINDY Administration Metoprolol Succinate 25 mg 10/23/25 17:23 10/24/25 08:08 Metoprolol Succ 25mg Ext Rel Tab PO 11/22/25 17:22 25 mg DAILY CINDY Administration Multivitamins 1 tab 10/24/25 12:00 10/24/25 12:07 Multivitamin Tab PO 11/23/25 11:59 1 tab DAILY@1200 CINDY Administration Rosuvastatin Calcium 10 mg 10/24/25 09:00 10/24/25 08:09 Rosuvastatin Calcium 10 Mg Tab PO 11/23/25 08:59 10 mg QAM CINDY Administration Trazodone HCl 50 mg 10/23/25 21:00 10/23/25 20:44 Trazodone Hcl 50 Mg Tab PO 11/22/25 20:59 50 mg HS CINDY Administration NPO Date Last Intake of Fluids: 10/23/25 Time Last Intake of Fluids: 23:59 Date Last Intake of Solids: 10/23/25 Time Last Intake of Solids: 12:00 Past Medical History Medical History (Updated 10/24/25 @ 14:19 by Yolanda Edwards DO) History of CVA with residual deficit Left hemiparesis Hyperlipidemia Major neurocognitive disorder History of intracranial hemorrhage HTN (hypertension) Alcoholic intoxication Mood disorder Kidney stones Exercise / Class Metabolic Activity III < 4 Walking/Shop/Light housework Past Surgical History Surgical History (Updated 10/24/25 @ 14:22 by Yolanda Edwards DO) H/O wisdom tooth extraction Hx of splenectomy Hx of esophagogastroduodenoscopy Past Anesthesia History No Hx of Anesthesia Complications and No Family Hx of Anesthesia Complications History of PONV No Hx of PONV and No Hx of Motion Sickness Social History Smoking Status: Former smoker tobacco type: cigarettes Do You Dip or Chew Tobacco: No Hx Alcohol Use: Yes Alcohol type: beer alcohol intake frequency: 0-2 drinks per day Hx Substance Use: No substance use type: does not use Physical Exam Vital Signs Last Vital Signs Temp 36.9 C 10/24/25 12:45 Pulse 62 10/24/25 12:45 Resp 17 10/24/25 12:45 BP 118/77 10/24/25 12:45 Pulse Ox 92 10/24/25 12:45 O2 Del Method Room Air 10/24/25 12:45 ENMT Mouth: + edentulous; no TMJ abnormality Thyromental Distance: > or= 3.5 Finger Breadths Mallampati Class: II Neck normal visual inspection, trachea midline and + facial hair; neck extension not limited Respiratory normal respiratory effort Auscultation: lungs clear to auscultation bilaterally Cardiovascular Rate/Rhythm: regular rate and regular rhythm Heart Sounds: no murmur Musculoskeletal Spine: normal cervical ROM Extremities: full ROM of extremities Neurologic moves all extremities Psychiatric Orientation: alert and oriented x 3 Testing Laboratory Results 10/24/25 07:41 10/24/25 07:41 PT 11.3 Seconds (9.0-12.0) 10/23/25 12:33 INR 1.1 (0.9-1.1) 10/23/25 12:33 APTT 29 Seconds (21-31) 10/23/25 12:33 Hemoglobin A1c 7.4 % (4.5-5.6) H 10/24/25 07:41 10/24/25 10/24/25 10/24/25 12:17 07:48 02:47 POC Glucose 123 H 116 H 116 H
--- NOTE | 2025-10-24 14:34 | Hospitalist Progress Note ---
Date of Service October 24, 2025 Assessment & Plan (1) Coffee ground emesis: Plan: -Complains to have occasional swallowing difficulty since stroke in the past -Has had food impaction at lunch yesterday -Repeated vomiting since then without any pain and noted to have coffee-ground emesis -No prior history of GI bleed and does not take any NSAIDs -Hgb downtrending albeit still high Plan: -continue 40 IV bid protonix -EGD scheduled for today -GI consult, appreciate recs (2) Dysphagia: Plan: -Complains of occasional dysphagia since his stroke about 2 years ago -speech consult, appreciate recs (3) Food impaction of esophagus: (4) WILMA (acute kidney injury): Plan: -Noted to have increasing creatinine of 2.60 -Normal noted to be on 07/20/2024 at 1.30 (5) HTN (hypertension): Plan: -Blood pressure remains on the upper side at 154/92 -Will continue his usual medications (6) Hyperlipidemia: Plan: -Continue statin (7) History of intracranial hemorrhage: Plan: -Has minimal left-sided hemiparesis (8) Major neurocognitive disorder: Plan: -Has been evaluated by neuropsychiatrist -Has major neurocognitive disorder but communicating normally Plan I spent a total of 50 minutes in direct patient care, including [id number] time with the patient and/or family, reviewing medical records, ordering and reviewing diagnostic tests, and coordinating care with other healthcare providers. This time includes: history taking, physical examination, medical decision making, counseling, ECG interpretation, imaging interpretation, lab interpretation, orders, and education, excluding time spent in the performance of separately billed services. Admission and Anticipated Discharge Date Admission Date: October 23, 2025 Subjective Patient seen and examined at bedside. Family present. Patient doing well today. Has been having coffee ground emesis for the past few days. None since coming to hospital. Otherwise feels fine. Review of Systems Review of Systems: -negative unless listed above Physical Exam Physical Exam: Gen: A&O 3 NAD HEENT: NCAT, EOMI, not icteric. External ears normal. No rhinorrhea. Moist mucous membranes. Neck: Supple, full range of motion, no observable masses, No meningeal sign. Lungs: No Respiratory distress. CV: RRR, no edema. Abdomen: Soft, nondistended, No rebound tenderness. MSK: No joint swelling, no redness. Skin: No rashes, petechiae, lesions. Normal color per patient. Neuro: mild hemiparesis on left Psych: Appropriate for situation. Results & Data Results & Data Vital Signs (Past 12 Hours) Vital Signs Temp Pulse Pulse Resp BP BP Pulse Ox 10/24/25 14:17 37.2 C 67 16 133/78 93 10/24/25 12:45 36.9 C 62 17 118/77 92 10/24/25 09:02 36.7 C 66 17 129/75 94 10/24/25 08:20 10/24/25 07:19 60 10/24/25 02:48 36.9 C 67 16 103/63 93 O2 Del Method 10/24/25 14:17 Room Air 10/24/25 12:45 Room Air 10/24/25 09:02 Room Air 10/24/25 08:20 Room Air 10/24/25 07:19 10/24/25 02:48 Room Air Laboratory Results -personally reviewed, WBC downtrending, creatinine downtrending Medications Administered Amantadine HCl (Amantadine Hcl 100 Mg Capsule) 100 mg PO [facility] Stop: 11/23/25 08:59 Last Admin: 10/24/25 08:09 Dose: 100 mg Documented By: ASA Amlodipine Besylate (Amlodipine Besylate 5 Mg Tab) [facility] Stop: 11/22/25 17:22 Last Admin: 10/24/25 08:08 Dose: 10 mg Documented By: Admin: 10/23/25 17:56 Dose: Not Given Documented By: JDR Buspirone HCl (Buspirone 5 Mg Tab) 5 mg PO BID [facility] Stop: 11/22/25 20:59 Last Admin: 10/24/25 08:10 Dose: 5 mg Documented By: Admin: 10/23/25 20:44 Dose: 5 mg Documented By: VARUNS Diphenhydramine HCl (Diphenhydramine Capsule 25 Mg Cap) [facility] [place] Stop: 11/23/25 08:59 Last Admin: 10/24/25 08:10 Dose: 25 mg Documented By: ASA Fluoxetine HCl (Fluoxetine Hcl 20 Mg Cap) 40 [facility] [place] Stop: 11/23/25 08:59 Last Admin: 10/24/25 08:09 Dose: 40 mg Documented By: NELL Lactated Ringer's (Lr) 1,000 mls @ 125 mls/hr IV .Q8H [facility] Stop: 10/24/25 15:29 Last Admin: 10/24/25 08:10 Dose: 125 mls/hr Documented By: Infusion: 10/24/25 07:45 Dose: Infused Documented By: Admin: 10/23/25 23:45 Dose: 125 mls/hr Documented By: Infusion: 10/23/25 23:39 Dose: Infused Documented By: Admin: 10/23/25 15:39 Dose: 125 mls/hr Documented By: dory Pantoprazole Sodium (Protonix) 40 mg in 10 mls @ 5 mls/min IV BID@0900,2100 [facility] Stop: 11/23/25 08:59 Last Admin: 10/24/25 10:09 Dose: 5 mls/min Documented By: NELL Insulin Aspart (Insulin Aspart Per Unit Charge) 0 units SC Q6H [facility] Stop: 11/22/25 20:14 Last Admin: 10/24/25 13:39 Dose: Not Given Documented By: Admin: 10/24/25 08:04 Dose: Not Given Documented By: Admin: 10/24/25 02:15 Dose: Not Given Documented By: Admin: 10/23/25 20:47 Dose: Not Given Documented By: NEMESIO Lisinopril (Lisinopril 20 Mg Tab) 20 mg PO BID [facility] Stop: 11/22/25 20:59 Last Admin: 10/24/25 08:09 Dose: 20 mg Documented By: Admin: 10/23/25 20:44 Dose: 20 mg Documented By: NEMESIO Metoprolol Succinate (Metoprolol Succ 25mg Ext Rel Tab) 25 mg PO DAILY [facility] Stop: 11/22/25 17:22 Last Admin: 10/24/25 08:08 Dose: 25 mg Documented By: Admin: 10/23/25 17:56 Dose: Not Given Documented By: LORNA Multivitamins (Multivitamin Tab) 1 tab PO DAILY@1200 [facility] Stop: 11/23/25 11:59 Last Admin: 10/24/25 12:07 Dose: 1 tab Documented By: NELL Rosuvastatin Calcium (Rosuvastatin Calcium 10 Mg Tab) 10 mg PO QAM [facility] Stop: 11/23/25 08:59 Last Admin: 10/24/25 08:09 Dose: 10 mg Documented By: ASA Trazodone HCl (Trazodone Hcl 50 Mg Tab) 50 mg PO HS [facility] Stop: 11/22/25 20:59 Last Admin: 10/23/25 20:44 Dose: 50 mg Documented By: NEMESIO (3) Food impaction of esophagus Encounter type: initial encounter Qualified Code(s): T18.128A - Food in esophagus causing other injury, initial encounter
--- NOTE | 2025-10-24 15:42 | GI REPORT ---
[facility] Patient: ANNE LACY : 1965 Sex at : Male Age: 60 Years Procedure: Upper GI endoscopy Date: 10/24/2025 Attending Physician: Frank Murillo MD Referring MD: Quique Reyes M.d. Indications: - Dysphagia - Coffee-ground emesis Medications: - See the Anesthesia note for documentation of the administered medications Complications: - No immediate complications. Estimated Blood Loss: - Estimated blood loss was minimal. Procedure: - Prior to the procedure, a History and Physical was performed, and patient medications and allergies were reviewed. The patient's tolerance of previous anesthesia was also reviewed. The risks and benefits of the procedure and the sedation options and risks were discussed with the patient. All questions were answered, and informed consent was obtained. Prior Anticoagulants: The patient has taken no anticoagulant or antiplatelet agents. ASA Grade Assessment: III - A patient with severe systemic disease. After reviewing the risks and benefits, the patient was deemed in satisfactory condition to undergo the procedure. - The egd scope was introduced through the mouth and advanced to the third part of the duodenum. - The upper GI endoscopy was accomplished without difficulty. - The patient tolerated the procedure well. Findings: - The examined duodenum was normal. - Patchy mildly erythematous mucosa was found in the gastric body and in the gastric antrum. This was biopsied with a cold forceps for histology. - A small hiatal hernia was present. - LA Grade D (one or more mucosal breaks involving at least 75% of esophageal circumference) esophagitis with no bleeding was found at the gastroesophageal junction (on retroflexion). This was biopsied with a cold forceps for evaluation to rule out Lara's Esophagus. - The mid esophagus was normal. This was biopsied with a cold forceps for evaluation of eosinophilic esophagitis. Impression: - Normal examined duodenum. - Erythematous mucosa in the gastric body and antrum. Biopsied. - Small hiatal hernia. - LA Grade D reflux esophagitis with no bleeding. Biopsied. - Normal mid esophagus. Biopsied. Recommendation: - Await pathology results. - Twice daily proton pump inhibitor is recommended. Start Carafate slurry 1 g 4 times daily. - Careful attention to mastication is advised - Repeat upper endoscopy in 2 months to check healing. - Soft diet for 2 days. Procedure Code(s): - 33721, Esophagogastroduodenoscopy, flexible, transoral; with biopsy, single or multiple Diagnosis Code(s): - R13.10, Dysphagia, unspecified - K92.0, Hematemesis - K31.89, Other diseases of stomach and duodenum - K44.9, Diaphragmatic hernia without obstruction or gangrene - K21.00, Gastro-esophageal reflux disease with esophagitis, without bleeding CPT(R) - 202 copyright [employer]. All Rights Reserved. The CPT codes, CCI edits and ICD codes generated are intended as suggestions and were generated based on input data. These codes are preliminary and upon recycling sorter review may be revised to meet current compliance and payer requirements. The provider is responsible for the final determination of appropriate codes, and modifiers. Frank Murillo MD This document has been electronically signed. Note Initiated:10/24/2025 Note Completed:10/24/2025 3:41 PM [id number]
--- NOTE | 2025-10-24 15:48 | Anesthesiology Progress Note ---
Date of Service October 24, 2025 Anesthesia Post Procedure Vital Signs Vital Signs: Temp Pulse Pulse Pulse Resp BP BP 10/24/25 15:34 72 16 119/77 10/24/25 14:17 99.0 F 67 16 133/78 10/24/25 13:00 69 10/24/25 12:45 98.4 F 62 17 118/77 10/24/25 09:02 98.1 F 66 17 129/75 10/24/25 08:20 10/24/25 07:19 60 10/24/25 02:48 98.4 F 67 16 10/23/25 22:38 98.2 F 74 16 10/23/25 21:43 79 10/23/25 19:51 99.1 F 83 16 10/23/25 17:39 88 10/23/25 17:26 98.2 F 88 20 10/23/25 16:21 89 18 10/23/25 16:12 84 16 10/23/25 16:06 143/74 H 10/23/25 16:06 143/74 H 10/23/25 16:06 143/74 H 10/23/25 16:06 143/74 H 10/23/25 16:06 143/74 H 10/23/25 16:06 89 20 10/23/25 16:06 90 16 10/23/25 16:00 83 19 10/23/25 15:51 88 17 BP Pulse Ox O2 Del Method 10/24/25 15:34 92 Room Air 10/24/25 14:17 93 Room Air 10/24/25 13:00 10/24/25 12:45 92 Room Air 10/24/25 09:02 94 Room Air 10/24/25 08:20 Room Air 10/24/25 07:19 10/24/25 02:48 103/63 93 Room Air 10/23/25 22:38 116/71 93 Room Air 10/23/25 21:43 10/23/25 19:51 122/80 93 Room Air 10/23/25 17:39 10/23/25 17:26 146/82 H 95 Room Air 10/23/25 16:21 94 10/23/25 16:12 94 10/23/25 16:06 10/23/25 16:06 10/23/25 16:06 10/23/25 16:06 10/23/25 16:06 10/23/25 16:06 94 10/23/25 16:06 143/74 H 95 10/23/25 16:00 98 10/23/25 15:51 95 Transfer of Care Handoff Completed per policy Notes Mental Status: alert / awake / arousable and participated in evaluation Patient Amnestic to Procedure: Yes Nausea / Vomiting: adequately controlled Pain: adequately controlled Airway Patency, RR, SpO2: stable & adequate BP & HR: stable & adequate Hydration State: stable & adequate Anesthetic Complications: no major complications apparent and Pt Satisfied with anesthetic care
[2025-10-24] MEDS ORDERED: Nursing to Pharmacy Communication ONE (16:50)
[2025-10-24] MEDS: LIDOCAINE 2% 2 ML VIAL/AMP(20MG/ML) INFIL ONE (18:41)
[2025-10-24] MEDS: PROPOFOL IV EMULSION 10 MG/ML 20 ML VIAL IV ONE (18:41)
[2025-10-24] MEDS: SUCRALFATE 1 GM TAB PO SCH (19:33)
[2025-10-24] MEDS: INSULIN ASPART PER UNIT CHARGE SC SCH (20:38)
[2025-10-24 23:38] LABS: Appearance Urine Clear (Clear); Glucose Urine UA 2+ (Negative)
[2025-10-25 00:25] LABS: Chlamydia pneumoniae PCR Not Detected (NotDetected); Coronavirus 229E PCR Not Detected (NotDetected); Coronavirus CoV-2 (COVID19)PCR Not Detected (NotDetected); Coronavirus HKU1 PCR Not Detected (NotDetected); Coronavirus NL63 PCR Not Detected (NotDetected); Coronavirus OC43PCR Not Detected (NotDetected); Human Metapneumovirus PCR Not Detected (NotDetected); Parainfluenza Virus 1 PCR Not Detected (NotDetected); Parainfluenza Virus 2 PCR Not Detected (NotDetected); Parainfluenza Virus 3 PCR Not Detected (NotDetected); Parainfluenza Virus 4 PCR Not Detected (NotDetected); Respiratory Syncytial VirusPCR Not Detected (NotDetected); Rhinovirus/Enterovirus PCR Not Detected (NotDetected)
[2025-10-25 07:15] VITALS: RESP 18
[2025-10-25 07:18] LABS: Hematocrit (blood only) 41.5 % (42.0-52.0); Hemoglobin 14.1 g/dL (14.0-18.0); Mean Corpuscular Hemoglobin 31.5 pg (25.0-34.0); Mean Corpuscular Volume 92.8 fL (80.0-100.0); Platelet Count 329 K/uL (130-400); RDW Standard Deviation 46.0 fL (36.4-46.3); Red Blood Count 4.47 M/uL (4.70-6.10); White Blood Count 13.66 K/ul (4.8-10.8)
[2025-10-25 07:37] LABS: Anion Gap 8.0 (3-11); Blood Urea Nitrogen 9.0 mg/dl (6-23); Calcium 8.7 mg/dl (8.6-10.3); Carbon Dioxide 25.0 mmol/L (21-32); Chloride 110.0 mmol/L (98-107); Creatinine Clr Calc Pharmacy 87.3 ml/min; Glucose 99.0 mg/dl (70-99(Fasting)); Magnesium 1.7 mg/dl (1.7-2.4); Potassium 4.0 mmol/L (3.5-5.1); Sodium 143.0 mmol/L (136-145)
[2025-10-25 11:35] VITALS: TEMP 98.1; O2SAT 93
[2025-10-25 13:22] VITALS: BP 102/62; PULSE 88
--- NOTE | 2025-10-25 14:09 | Discharge Summary ---
Discharge Summary Date of Service October 25, 2025 Principal Dx & Hospital Course #1 = Principal Diagnosis (1) Coffee ground emesis: -Complains to have occasional swallowing difficulty since stroke in the past -Has had food impaction at lunch yesterday -Repeated vomiting since then without any pain and noted to have coffee-ground emesis -No prior history of GI bleed and does not take any NSAIDs -Hgb downtrending albeit still high Plan: -continue 40 IV bid protonix -EGD scheduled for today -GI consult, appreciate recs (2) Dysphagia: -Complains of occasional dysphagia since his stroke about 2 years ago -speech consult, appreciate recs (3) Food impaction of esophagus: (4) WILMA (acute kidney injury): -Noted to have increasing creatinine of 2.60 -Normal noted to be on 07/20/2024 at 1.30 (5) HTN (hypertension): -Blood pressure remains on the upper side at 154/92 -Will continue his usual medications (6) Hyperlipidemia: -Continue statin (7) History of intracranial hemorrhage: -Has minimal left-sided hemiparesis (8) Major neurocognitive disorder: -Has been evaluated by neuropsychiatrist -Has major neurocognitive disorder but communicating normally Plan I spent a total of 50 minutes in direct patient care, including [id number] time with the patient and/or family, reviewing medical records, ordering and reviewing diagnostic tests, and coordinating care with other healthcare providers. This time includes: history taking, physical examination, medical decision making, counseling, ECG interpretation, imaging interpretation, lab interpretation, orders, and education, excluding time spent in the performance of separately billed services. Notes For Next Care Provider 60-year-old male with significant past medical history of hemorrhagic stroke with left hemiplegia about 2 years ago, hypertension, type 2 diabetes, major neurocognitive disorder following the stroke and prior history of alcohol abuse admitted for melena. Has had some dysphagia as well. On medicine, GI consulted, EGD performed, found grade D esophagitis and some gastritis, started on protonix and carafate. Speech therapy consulted, did not make alterations to current plan. On 10/25/2025 patient medically stable for discharge home. To do: [ ] f/u with GI [ ] deescalate carafate as needed -Incidental Findings: hiatal hernia Medication Changes From Visit -see below Admission HPI Per Admitting Provider Is a 60-year-old male with significant past medical history of hemorrhagic stroke with left hemiplegia about 2 years ago, hypertension, type 2 diabetes, major neurocognitive disorder following the stroke and prior history of alcohol abuse apparently has been complaining of occasional problem with swallowing solid food following the stroke. He was having turkey lunch yesterday and felt the food stuck in his esophagus and started to have vomiting. He has had vomited about 12 times since the incidence and lately having coffee-ground emesis as well. He was brought into the emergency room for further evaluation. He denies any pain in the central chest or in the epigastrium, does not have any abdominal pain nausea and or vomiting since I saw him, and denies any problem with urinary or bowel. He has not been taking any NSAIDs and he has not had any coffee-ground vomiting before or did not have any black tarry stool past. He was started with intravenous Protonix and GI service was informed by the ER physician who will probably do EGD tomorrow. Discharge Exam Gen: A&O 3 NAD HEENT: NCAT, EOMI, not icteric. External ears normal. No rhinorrhea. Moist mucous membranes. Neck: Supple, full range of motion, no observable masses, No meningeal sign. Lungs: No Respiratory distress. CV: RRR, no edema. Abdomen: Soft, nondistended, No rebound tenderness. MSK: No joint swelling, no redness. Skin: No rashes, petechiae, lesions. Normal color per patient. Neuro: mild hemiparesis on left Psych: Appropriate for situation. Updated Medication List Medication Instructions Recorded Confirmed Type amantadine HCl 100 mg capsule 100 mg feeding tube QA 07/20/24 10/23/25 History amlodipine 10 mg tablet 10 mg feeding tube QAM 07/20/24 10/23/25 History buspirone 5 mg tablet 5 mg feeding tube BID 07/20/24 10/23/25 History diphenhydramine HCl 25 mg capsule 25 mg feeding tube QA 07/20/24 10/23/25 History (Banophen) fluoxetine 40 mg capsule 0 mg feeding tube QAM 07/20/24 10/23/25 History folic acid 1 mg tablet 1 mg feeding tube QAM 07/20/24 10/23/25 History lisinopril 20 mg tablet 0 mg feeding tube BID 07/20/24 10/23/25 History meclizine 25 mg tablet 25 mg feeding tube TID PRN 07/20/24 10/23/25 History Dizziness multivitamin with folic acid 400 1 tab PO .DAILYATNOON 07/20/24 10/23/25 History mcg tablet (Daily-Stiven (with folic acid)) rosuvastatin 10 mg tablet 10 mg PO QAM 07/20/24 10/23/25 History tamsulosin 0.4 mg capsule 0 mg PO QAM 07/20/24 10/23/25 History thiamine HCl (vitamin B1) 100 mg 100 mg feeding tube QAM 07/20/24 10/23/25 History tablet trazodone 50 mg tablet 50 mg PO HS 07/20/24 10/23/25 History metformin 500 mg tablet,extended 500 mg PO DAILY 10/23/25 10/23/25 History release 24 hr metoprolol succinate 25 mg 25 mg PO DAILY 10/23/25 10/23/25 History tablet,extended release 24 hr pantoprazole 40 mg tablet,delayed 40 mg PO BID 30 days #60 tabs 10/25/25 Rx release (Protonix) sucralfate 1 gram tablet 1 g PO QID 30 days #120 tabs 10/25/25 Rx Hospital Stay Data Consultations 10/23/25 14:07 Consult Gastroenterology Routine 10/23/25 14:08 ED Decision to Admit Stat Procedures Performed Operation Date: 10/24/25 17:00 Actual Procedures p EGD Biopsy Cytology - Frank Murillo MD Diagnostic Imagining Performed 10/23/25 13:16 CT abd pelvis wo con Stat Pending Results Patient Have Any Pending Studies at Discharge: No Discharge Instructions Given to Patient (Per Discharging Provider) Diagnosis: grade D esophagitis, WILMA Incidental Findings: hiatal hernia Follow Ups: PCP, GI 1. Please follow up with PCP and GI. 2. Please follow a soft diet for next few days. 3. Please take medications as prescribed. Total Time Total Time Spent Total Time Spent (In Minutes): I spent a total of 35 minutes in direct patient care, including [id number] time with the patient and/or family, reviewing medical records, ordering and reviewing diagnostic tests, and coordinating care with other healthcare providers. This time includes: history taking, physical examination, medical decision making, counseling, ECG interpretation, imaging interpretation, lab interpretation, orders, and education, excluding time spent in the performance of separately billed services.
== END 2025-10-25 14:26 | disposition home or self-care (01) ==
LOC: ED 12:06 → 2W 15:00 → INTOOBSV 15:00 → SUATTDRO 15:00 → 2W 16:36